=== PATIENT | male | born 1990 | race Two or more races ===

== ENCOUNTER 2017-12-24 15:24 | Emergency (ER) | payer SELFPAY ==
[2017-12-24 15:38] VITALS: RESP 18
[2017-12-24] MEDS ORDERED: NS 1,000 ML IV ONE (16:30)
[2017-12-24] MEDS ORDERED: KETOROLAC 30 MG/1 ML SDV IVP ONE (16:30)
--- NOTE | 2017-12-24 16:30 | EDPHY ---
H & P Stated Complaint: Post h/a and neck pain since Sunday; no injury HPI/ROS: CHIEF COMPLAINT: Headache HISTORY OF PRESENT ILLNESS: This is a healthy immunocompetent 27-year-old male with an occipital headache for the last 3 days. It came on gradually and has persisted. He has been taking ibuprofen 600 mg every 6-8 hours and Tylenol 650 mg twice daily with minimal relief. He denies fever. He has not had neck stiffness or fever. No numbness or weakness. No change in vision. No nausea or vomiting. He does not have history of migraine. REVIEW OF SYSTEMS: A ten point review of systems was performed and is negative with the exception of the items mentioned in the HPI. Past medical history: Negative Past surgical history: Negative Social history: Is here with his and child. He smokes 4 cigarettes daily. General Appearance: Alert. Vital signs reviewed. Blood pressure 143/62 at triage. Head: Normocephalic, atraumatic. Eyes: Pupils equal and round, no conjunctival injection, no discharge. Anicteric. ENT, Mouth: Mucous membranes are moist, no oropharyngeal erythema or edema. No sinus tenderness to palpation. Neck: No lymphadenopathy, supple. No meningeal signs. Respiratory: Lungs are clear to auscultation; no wheezes, rales, or rhonchi. Cardiovascular: Regular rate and rhythm; no murmur, rub, or gallop. Gastrointestinal: Abdomen is soft and nontender, no masses or organomegaly, bowel sounds normal. Skin: Warm and dry, no rashes on exposed skin, normal color. Back: Nontender to palpation over the thoracolumbar spine. No CVAT. Extremities: No lower extremity edema, no calf tenderness or swelling. Neurological: Alert and oriented. Moving all four extremities easily and equally. Cranial nerves II through XII are examined and are intact (visual acuity not tested). Strength is 5 over 5 bilaterally with testing of all major motor groups. Sensation is intact to light touch over all 4 extremities. Deep tendon reflexes are 2+ in the biceps and knees bilaterally. Gait is normal. [id number] is performed accurately. Psychiatric: Normal affect. - Personal History Current Tetanus Diphtheria and Acellular Pertussis (TDAP): Unsure - Medical/Surgical History Other PMH: none - Social History Smoking Status: Current every day smoker Constitutional: Initial Vital Signs Temperature (C) 36.8 C 12/24/17 15:35 Heart Rate 78 12/24/17 15:35 Respiratory Rate 18 12/24/17 15:35 Blood Pressure 143/82 H 12/24/17 15:35 O2 Sat (%) 97 12/24/17 15:35 O2 Delivery Mode Room Air Allergies/Adverse Reactions: No Known Allergies Allergy (Unverified 12/24/17 15:34) Home Medications: Medication Instructions Recorded NK [No Known Home Meds] 12/24/17 Medical Decision Making ED Course/Re-evaluation: Patient was given 1 L IV normal saline, 2 mg of Valium for presumed tension- type headache, and Toradol 15 mg. He was re-evaluated at 6:00 p.m. at which time he is feeling better but continues with some persistent headache. Will try Sonora see if we can eradicate his headache. He received one Sonora with complete resolution of headache. He remains alert, moving all four extremities easily. He is comfortable returning home. Follow up recommended and referrals given. Danger signs reviewed. VS recorded twice--high blood pressure noted both times. He is advised to have this followed up on by PCP. I do not suspect migraine given the nature of this headache. I do not suspect subarachnoid hemorrhage. Nothing to suggest meningitis, sinusitis. Differential Diagnosis: Headache including but not limited to subarachnoid hemorrhage, migraine headache , tension headache and infectious causes such as meningitis, pharyngitis and sinusitis. - Data Points Medications Given: Discontinued Medications Hydrocodone Bitart/Acetaminophen (Sonora 5/325mg Prepack#6) 1 btl TAKEHOME EDNOW ONE Stop: 12/24/17 18:07 Last Admin: 12/24/17 18:25 Dose: 1 btl Hydrocodone Bitart/Acetaminophen (Sonora 5/325) 1 tab PO EDNOW ONE Stop: 12/24/17 18:12 Last Admin: 12/24/17 18:14 Dose: 1 tab Diazepam (Valium) 2 mg IVP EDNOW ONE Stop: 12/24/17 16:32 Last Admin: 12/24/17 16:58 Dose: 2 mg Sodium Chloride (Ns) 1,000 mls @ 0 mls/hr IV ONCE ONE; Wide Open PRN Reason: Protocol Stop: 12/24/17 16:31 Last Admin: 12/24/17 16:58 Dose: 1,000 mls Ketorolac Tromethamine (Toradol) 15 mg IVP EDNOW ONE Stop: 12/24/17 16:31 Last Admin: 12/24/17 16:57 Dose: 15 mg Morphine Sulfate (Morphine) 4 mg IVP EDNOW ONE Stop: 12/24/17 18:03 Last Admin: 12/24/17 18:22 Dose: Not Given Departure - Departure Disposition: Home, Routine, Self-Care Clinical Impression: Headache Qualifiers: Headache type: tension-type Headache chronicity pattern: acute headache Intractability: not intractable Qualified Code(s): G44.209 - Tension-type headache, unspecified, not intractable Condition: Good Instructions: Hydrocodone/Acetaminophen (By mouth), Tension Headache (ED) Additional Instructions: Adult Pain & Fever Control: We recommend Acetaminophen (Tylenol) and Ibuprofen (Motrin,Advil) for pain and fever control. When fever is high or pain severe, both drugs can be used at the same time, but at different intervals. Please note the time differences. Your dose is: Acetaminophen 650mg every 4 to 6 hours Ibuprofen 600mg every 6-8 hours with food OR Note: do not take Acetaminophen with Hydrocodone (Vicodin, Lortab) or Oycodone (Percocet). These medications also contain Acetaminophen. No more than 3000mg of Acetaminophen should be taken in 24 hours (for an adult).You can be seen at [facility]. You will need to call them and register to be a patient. I am sending you home with some pain medication. This medication contains opiate pain medication so you should not drive or do anything that might be dangerous when taking this medication. It also contains tylenol so do not take additional Tylenol (acetominophen) if you're taking the prescription pain medicine. It is fine for you to go ahead and take ibuprofen. You can take ibuprofen 600 mg every 6-8 hours. If you continue to have headaches or if your headache worsens in any way you should be re-evaluated. Referrals: [facility],. [Clinic] - As per Instructions
[2017-12-24] MEDS ORDERED: DIAZEPAM 10 MG/2 ML SYR IVP ONE (16:31)
[2017-12-24] MEDS ORDERED: HYDROCOD/APAP 5/325 PREPACK#6 BTL TAKEHOME ONE (18:06)
[2017-12-24] MEDS ORDERED: HYDROCODONE/APAP 5/325 TAB PO ONE (18:11)
[2017-12-24 18:35] VITALS: BP 130/96; PULSE 76; TEMP 97.9; O2SAT 96
== END 2017-12-24 18:33 | disposition home or self-care (01) ==
DX: G44.209 Tension-type headache, unspecified, not intractable (principal); F17.200 Nicotine dependence, unspecified, uncomplicated; E86.9 Volume depletion, unspecified
CPT/HCPCS: 96374; J1885; J3360

== ENCOUNTER → 2018-09-24 | Outpatient (CLI) | payer OTHER | LOC: BMCIMAGING 15:45 | PROVIDERS: ATTEND Family Medicine | DX: S62.620A Displaced fracture of middle phalanx of right index finger, initial encounter for closed fracture (principal) ==